=== PATIENT | male | born 1950 | race Caucasian/White ===

== ENCOUNTER → 2016-12-16 | Day surgery (SDC) | payer OTHER, MEDICARE ==
[~2016-12-16] VITALS: Ht 172.7 cm; Wt 97.5 kg
[2016-12-16 08:55] LABS: PT 11.5 SEC (9.4-12.5); PTT 37 SEC (25-37)
--- NOTE | 2016-12-16 10:59 | Operative Report ---
Operative/Inv Procedure Report Surgery Date: 12/16/16 Name of Procedure: Endoscopic sinus surgery with fusion guidance and balloon sinus plasty 1. Sinonasal polypectomy 2. Middle meatal antrotomy with polypoid tissue removal, bilateral 3. Total ethmoidectomy with polypoid tissue removal, bilateral 4. Nasofrontal duct exploration with dilation and polypoid tissue removal 5. Middle turbinate reduction, bilateral 6. Inferior turbinate outfracture , bilateral Pre-Operative Diagnosis: 1. Sinonasal polyposis 2. Chronic peace sinusitis, ethmoid, maxillary, frontal, bilateral 3. Turbinate hypertrophy inferior and middle, bilateral Post-Operative Diagnosis: Same Estimated Blood Loss: 200 mL Surgeon/Patient Placement Coordinator: MAN SALEH MD Anesthesia: general endotracheal tube Specimens: 1. Sinus, ethmoid and maxillary and frontal and middle turbinate, left 3. Sinus, ethmoid and maxillary and frontal middle turbinates, right Complications: None Condition: Stable on leaving the OR Operative Indication: Difficulty breathing through the nose, nasal congestion x several years Chronic sinusitis with recurrent polyps x years Patient treated with multiple antibiotics, antihistamines, decongestants, steroid and antihistamine nasal sprays with limited improvement, with improvement but then recurrence Frequent facial pressures and headaches s/p sinus surgery in the past Operative/Procedure Note Note: The patient was brought to the operating room. Placed on the operating room table in supine position. At first timeout was performed identifying the patient, ID numbers and procedure to be performed. Next general oral endotracheal anesthesia was induced. Endotracheal tube was secured with tape over the last corner of the lip. Operating room table was rotated 90 to the left and patient was positioned for septal surgery with head slightly hyperextended and rotated to the right. At first vasoconstriction was carried by application of Afrin spray on cottonoid pledgets. Next middle meatus on the left was injected with 1% lidocaine with 1: 100,000 epinephrine approximately 6cc was injected. This followed by placement of cotton pledgets saturated with cocaine solution and Afrin spray. Patient's face was then prepped and draped in routine manner and surgery was performed. As first fusion instrumentation was applied and calibrated . Next endoscopic sinus surgery was carried out, first on the left and then on the right. The surgery was carried with direct visualization with 0 and 30 scopes. At first on the left, middle turbinate was reduced along its inferior border with [place]uenwald forceps. Middle meatus was entered and total ethmoidectomy was carried. Polypoid tissue removed. The ethmoid air cells were removed with the straight and up turned to Ash-Dawsonley forceps. Ethmoid air cells were obstructed with profuse polyps . There was significant bony hyperostosis. Total ethmoidectomy was carried with fusion guidance. Once ethmoidectomy was completed, Nasofrontal duct was explored . Polypoid tissue removed, balloon sinus plasty was carried. Nasofrontal duct was at first located with effusion guidance followed by balloon sinus plasty. Wire guide was threaded into the nasofrontal duct and frontal sinus followed by advancement of the balloon which was then inflated to a pressure of 6. Balloon was deflated and wire deadvanced together with the balloon. Small amount of purulent drainage was obtained from the frontal sinus. Maxillary sinus ostium was explored. Uncinate process was partially removed with Setliff forceps. Profuse polypoid tissue within the ostium was also removed. Curved ball seeker was used to probe for the natural maxillary sinus ostium. The ostium was further identified with fusion tracker. The ostium was then dilated with curved suction. Polypoid tissue was removed. Sinus was suctioned and contained thickened inspissated secretions. Surgery was completed on the Left. Next similar surgery was carried on the right. Again the middle turbinate was reduced along its inferior border with Gruenwald forceps. Then total ethmoidectomy was carried. Both bone and mucosa were removed. The mucosa was hyperplastic and total hyperostotic. Ethmoidectomy was carried with fusion guidance. There was marked polypoid tissue present throughout the ethmoids. Once the ethmoidectomy was completed, Nasofrontal duct was explored . Polypoid tissue removed, balloon sinus plasty was carried. Nasofrontal duct was at first located with fusion guidance followed by balloon sinus plasty. Wire guide was threaded into the nasofrontal duct and frontal sinus followed by advancement of the balloon which was then inflated to a pressure of 6. Balloon was deflated and wire deadvanced together with the balloon. Small amount of purulent drainage was obtained from the frontal sinus. Once frontal sinus was explored , then maxillary sinus ostium was searched for. Partial uncinectomy was carried with Setliff forceps. Curved ball seeker was used to search for the maxillary ostium. This was followed by fusion guidance. Ostium was dilated with a curved suction. Polypoid mucosa was removed. Sinus was suctioned. It contained inspissated secretions. Surgery was completed. Next inferior turbinates were then in and outfracture. This was done with 0 scope visualization. This improved the inferior nasal airway. Surgery was completed. Nasal packing was applied next. Gelfilm rolled up into a roll was placed into the middle meatus 2 pieces on each side, secured with 2-0 silk which was then taped to the cheeks with Steri-Strips. Nasal fossa was packed with Telfa saturated with Bactroban ointment. Telfa was stitched anteriorly with 2-0 silk to prevent posterior displacement. This followed by placement Helotene slurry into the middle meatus bilaterally Surgery was completed. The patient was reawakened, extubated and taken to the recovery room in good condition. There were no complications. Estimated blood was was 200 mL. Findings: 1. Nasal fossa obstructed by polypoid tissue, bilaterally 2. Ethmoid sinuses- polyps tissue 3. Maxillary sinuses- polyps tissue and thickened secretions 4. Middle turbinates- hypertrophy 5. Inferior Turbinates- hypertrophy with obstruction of the inferior meatus Discharge Disposition: PACU
== END ==
LOC: STS 09-30 07:00
PROVIDERS: Otolaryngology
DX: J32.4 Chronic pansinusitis (principal); J33.8 Other polyp of sinus; J34.3 Hypertrophy of nasal turbinates; R09.81 Nasal congestion; F17.200 Nicotine dependence, unspecified, uncomplicated; J44.9 Chronic obstructive pulmonary disease, unspecified; I10 Essential (primary) hypertension; E11.9 Type 2 diabetes mellitus without complications; Z79.84 Long term (current) use of oral hypoglycemic drugs; E03.9 Hypothyroidism, unspecified; E78.2 Mixed hyperlipidemia
CPT/HCPCS: 1263; 36415; 88304; C9399; J0131; J0690; J1100; J2250

== ENCOUNTER 2017-10-14 07:07 | Inpatient (IN) | payer OTHER, MEDICARE ==
[~2017-10-14] VITALS: Ht 172.7 cm; Wt 98.5 kg
--- NOTE | 2017-10-14 07:34 | ED CARDIAC/CP/PALPITATIONS ---
History of Present Illness General Chief Complaint: Chest Pain Stated Complaint: "I THINK IM HAVING A HEART ATTACK" Source: patient, family, old records Exam Limitations: no limitations Vital Signs & Intake/Output Vital Signs & Intake/Output Vital Signs Date Time Temp Pulse Resp B/P B/P Pulse O2 O2 Flow FiO2 Mean Ox Delivery Rate 10/15 0717 68 18 108/56 93 Room Air Room Air 10/14 0810 83 18 98/53 93 Room Air Room Air 10/14 0744 97 Room Air Room Air 10/14 0730 78 18 117/60 93 Room Air Room Air 10/14 0727 97.6 70 22 177/68 95 Room Air Allergies Coded Allergies: NO KNOWN ALLERGIES (12/15/16) Triage Note: PT STATES "I THINK IM HAVING A HEART ATTACK". PT STATES LEFT SIDED PAIN DOWN ARM, NOW RIGHT ARM AND JAW AND BOTTOM TEETH AND PT STATES THAT HE CAN NOT TAKE A DEEP BREATH. ONSET 0430 THIS MORNING. Triage Nurses Notes Reviewed? yes HPI: Patient was awoken at 4:30 this morning with a pressure sensation substernally that radiated to his left arm. Patient attempted to go back to sleep but was unable to. Patient went to bed last night feeling fine. Slowly over the next few hours the pain also began to radiate to his right arm. Pain then began to radiate up towards his jaw and actually became concerned and decided to come to the emergency room for evaluation. At its worst the pain was 9 out of 10. Patient took a full strength aspirin and slowly the pain is decreased to a 6 out of 10. The pain is constant. It radiates as noted above. Patient states that he feels he cannot take a deep breath. Patient denies any orthopnea. There is no dyspnea on exertion. There is no nausea or vomiting. There is no diaphoresis. Past History Travel History Traveled to [place] past 21 day No Medical History Any Pertinent Medical History? see below for history Cardiovascular: hypertension, hyperlipidemia Endocrine: diabetes Surgical History Surgical History: non-contributory Psychosocial History Who do you live with Spouse Services at Home NONE What is your primary language Hebrew Tobacco Use: Current Daily Use Daily Tobacco Use Amount/Type: =< 4 Cigarettes daily ETOH Use: denies use Illicit Drug Use: denies illicit drug use Family History Hx Contributory? No Review of Systems Review of Systems Constitutional: Reports: no symptoms. EENTM: Reports: no symptoms. Respiratory: Reports: no symptoms. Cardiovascular: Reports: see HPI, chest pain. GI: Reports: no symptoms. Genitourinary: Reports: no symptoms. Musculoskeletal: Reports: no symptoms. Skin: Reports: no symptoms. Neurological/Psychological: Reports: no symptoms. Hematologic/Endocrine: Reports: no symptoms. Immunologic/Allergic: Reports: no symptoms. All Other Systems: Reviewed and Negative Physical Exam Physical Exam General Appearance: well developed/nourished, alert, awake, anxious, moderate distress Head: atraumatic, normal appearance Eyes: Bilateral: PERRL, EOMI. Ears, Nose, Throat: normal pharynx, normal ENT inspection, hearing grossly normal Neck: normal inspection, supple, full range of motion Respiratory: normal breath sounds, chest non-tender, no respiratory distress, lungs clear Cardiovascular: regular rate/rhythm, normal peripheral pulses Gastrointestinal: normal bowel sounds, soft, non-tender, no organomegaly Back: normal inspection, normal range of motion Extremities: normal inspection, normal capillary refill, normal range of motion, no edema Neurologic/Psych: no motor/sensory deficits, awake, alert, oriented x 3, normal mood/affect Skin: intact, normal color, warm/dry Lymphatic: no anterior cervical javon Core Measures ACS in differential dx? Yes No ASA d/t TOOK EKG MONITOR TECH CVA/TIA Diagnosis No Sepsis Present: No Sepsis Focused Exam Completed? No Progress Differential Diagnosis: AMI, atrial fibrillation, cholecystitis, musculoskeletal pain, myocarditis, pericarditis, pneumonia, pneumothorax, pulmonary embolism Plan of Care: Orders Procedure Date/time Status Telemetry/Telecommunications Manager 10/14 0733 Active TROPONIN LEVEL 10/14 0733 Complete D-DIMER 10/14 0733 Complete COMPREHENSIVE METABOLIC PANEL 10/14 0733 Complete CBC WITHOUT DIFFERENTIAL 10/14 0733 Complete EKG 10/14 0708 Active Laboratory Tests 10/14/17 0730: Anion Gap 15, Estimated GFR > 60, BUN/Creatinine Ratio 17.5, Glucose 145 H, Calcium 10.5 H, Total Bilirubin 0.9, AST 57, ALT 36, Alkaline Phosphatase 214 H, Troponin I < 0.01, Total Protein 8.6 H, Albumin 4.0, Globulin 4.6 H, Albumin/Globulin Ratio 0.9 L, D-Dimer High Sensitivty < 200, CBC w Diff NO MAN DIFF REQ, RBC 4.26 L, MCV 96.7 H, MCH 32.0 H, MCHC 33.0, RDW 14.9 H, MPV 9.0 , Gran % 66.1, Lymphocytes % 20.0 L, Monocytes % 7.1, Eosinophils % 6.1 H, Basophils % 0.7, Absolute Granulocytes 7.0 H, Absolute Lymphocytes 2.1, Absolute Monocytes 0.8 H, Absolute Eosinophils 0.6, Absolute Basophils 0.1 Diagnostic Imaging: Viewed by Me: Radiology Read. Discussed w/RAD: Radiology Read. CXR Impression: PATIENT: DELVIS GILL PRESENT AGE : 66 PATIENT ACCOUNT NO: [id number] : 49 LOCATION: [facility] ORDERING PHYSICIAN: Roe Woods MD SERVICE DATE: 10/14/17 EXAM TYPE: RAD - XRY-PORTABLE CHEST XRAY EXAMINATION: XR PORTABLE CHEST CLINICAL INFORMATION: Chest pain COMPARISON: 04/21/2009. TECHNIQUE: Portable AP 85 degrees upright view of the chest was obtained. FINDINGS: Cardiac and mediastinal silhouettes are within normal limits. Lung volumes are decreased but clear. No focal consolidation or atelectasis. Postoperative changes seen at the distal right clavicle. IMPRESSION: Unremarkable examination. DICTATED BY: Trevon Mccormack MD DATE/TIME DICTATED:10/14/17800 JAVA MOBILE DEVELOPER:ODALYS DATE/TIME TRANSCRIBED:10/14/17800 CONFIDENTIAL, DO NOT COPY WITHOUT APPROPRIATE AUTHORIZATION. <Electronically signed in Other Vendor System> SIGNED BY: Trevon Mccormack MD 10/14/17805 Initial ED EKG: NSR, no ST T wave changes Rhythm Strip: normal sinus rhythm Comments: PAIN DOWN TO 6 OUTOF10 AFTER THE ASA PAIN DOWN TO 3 OUT OF 10 AFTER NTG PAIN GONE AFTER SECOND NITRO CASE D/W DR. ROPER. HE WILL CONSULT Departure Departure Disposition: STILL A PATIENT Condition: Fair Clinical Impression Primary Impression: ACS (acute coronary syndrome) Referrals: Cindy HOLBROOK,Bill Zaragoza (PCP/Family) Departure Forms: Customer Survey General Discharge Information Admission Note Spoke With: Megan Lopez MD Documentation of Exam: Documentation of any treatments & extenuating circumstances including Concerns Regarding Discharge (functional status, medication knowledge or non-compliance, living conditions, etc.) that warrant an admission rather than observation: [ TELE ADMISSION, SERIAL ENZYNES, HEPARIN IF PAIN COMES BACK. CARDIOLOGY CONSULTAITON WITH PROBABLE CATHETERIZATION INNEAR FUTURE.] Critical Care Note Critical Care Note Critical Care Time: mins: (90 MIN)
[2017-10-14 07:50] LABS: ABSOLUTE BASOPHIL COUNT 0.1 /CUMM (0.0-0.2); ABSOLUTE EOSINOPHIL COUNT 0.6 /CUMM (0.0-0.7); ABSOLUTE LYMPH COUNT 2.1 /CUMM (1.2-3.4); ABSOLUTE MONOCYTE COUNT 0.8 /CUMM (0.10-0.60); BASOPHIL % 0.7 % (0.0-2.0); EOSINOPHIL % 6.1 % (0-5); GRANULOCYTE % 66.1 % (42.2-75.2); HEMATOCRIT 41.2 % (42-52); MEAN CORPUSCULAR VOLUME 96.7 FL (80.0-94.0); PLATELET COUNT 218 /CUMM (130-400); RBC DISTRIBUTION WIDTH 14.9 % (11.5-14.5); RED BLOOD CELL CT 4.26 /CUMM (4.70-6.10); WHITE BLOOD CELL COUNT 10.6 /CUMM (4.8-10.8)
--- NOTE | 2017-10-14 08:06 | RADIOLOGY REPORT ---
EXAMINATION: XR PORTABLE CHEST CLINICAL INFORMATION: Chest pain COMPARISON: 04/21/2009. TECHNIQUE: Portable AP 85 degrees upright view of the chest was obtained. FINDINGS: Cardiac and mediastinal silhouettes are within normal limits. Lung volumes are decreased but clear. No focal consolidation or atelectasis. Postoperative changes seen at the distal right clavicle. IMPRESSION: Unremarkable examination.
--- NOTE | 2017-10-14 09:01 | History & Physical ---
Triston HOLBROOK,Itzel 10/14/17 0901: General Information and HPI MD Statement: I have seen and personally examined DELVIS GILL and documented this H&P. The patient is a 66 year old M who presented with a patient stated chief complaint of [chest pain]. Source of Information: patient Exam Limitations: no limitations History of Present Illness: 66-year-old male with a past medical history significant for type 2 diabetes not on insulin, anxiety, high blood pressure, hyperlipidemia, hypothyroidism, cirrhosis with esophageal and gastric varices and enlarged liver and current smoker who presents with c/o chest pain that woke him up this morning around 4.30-5am. Pain was pressure-like, substernal and radiated to his left arm, right arm and then radiated to his mid jaw into his lower teeth. Pain was constant 6-7 /10, and was only mildly relieved by full strength aspirin which he took at home. He was brought to the ED by his and in the ED was given SL nitro x 2 with marked improvemnet in his chest pain, except for a mild residual pain when he tries to take in a deep breath. He denies any similar pain in the past, palpitations, fever, SOB, diaphoresis, nausea or vomiting, orthopnea, or PND. He report good blood glucose control at home (80-120) post meal, but he does not follow a strct diabetic or heart healthy diet and does not excercise. He had a recent endoscopy/colonoscopy 1 month ago with polyp removal and was recently started on nadolol by Dr Kennedy (GI). He recently stopped drinking ETOH but continues to smoke up to a pack per week and isn't ready to quit. He has a chronic red rash on his skin x 1 yr now. Work up has reveealed no diagnosis and no treatment has worked so far. He is now using UV light therapy with minimal improvement but no resolution. He had a history of bigeminy in the past for which he was seen by Dr. Lopez's cardiology group about 5-6 yrs ago and was started on a medication which he can' t remember and no longer takes. He says he had a stress test at that time that was normal. No known FH of heart disease. Allergies/Medications Allergies: Coded Allergies: NO KNOWN ALLERGIES (12/15/16) Home Med list Amlodipine Besylate 10 MG TABLET 1 TAB PO DAILY HIGH BLOOD PRESSURE (Reported ) Atorvastatin Calcium 10 MG TABLET 1 TAB PO DAILY HIGH CHOLESTROL (Reported) Duloxetine HCl 30 MG CAPSULE.DR 1 CAP PO DAILY ANXIETY (Reported) Furosemide 20 MG TABLET 1 TAB PO DAILY LEG SWELLING (Reported) Levothyroxine Sodium 75 MCG TABLET 1 TAB PO DAILY HYPOTHYROIDISM (Reported) Losartan Potassium 100 MG TABLET 1 TAB PO DAILY HIGH BLOOD PRESSURE (Reported ) Metformin HCl 1,000 MG TABLET 1 TAB PO BID DIABETES (Reported) Nadolol 20 MG TABLET 1 TAB PO DAILY LIVER HEALTH (Reported) Compliance With Home Meds: GOOD Past History Travel History Traveled to [place] past 21 day No Medical History Neurological: NONE EENT: METAL IN EYE Cardiovascular: hypertension, hyperlipidemia Respiratory: asthma Gastrointestinal: GERD Hepatic: ENLARGED LIVER Renal: NONE Musculoskeletal: NONE Psychiatric: anxiety Endocrine: diabetes, hypothyroidism, obesity Blood Disorders: NONE Cancer(s): NONE FULL TIME STAFF INTERPRETER/Reproductive: NONE Surgical History Surgical History: non-contributory Past Family/Social History Family History Relations & Conditions if any MOTHER FH: diabetes mellitus TIAs FATHER FH: prostate cancer Psychosocial History Where do you live? Home Who Do You Live With? spouse Services at Home: NONE Smoking Status: Current Everyday Smoker ETOH Use: denies use Illicit Drug Use: denies illicit drug use Functional Ability ADLs Independent: dressing, eating, toileting, bathing. Ambulation: independent IADLs Independent: shopping, housework, finances, food prep, telephone, transportation , medication admin. Review of Systems Review of Systems Constitutional: Denies: see HPI. Cardiovascular: Reports: chest pain. Respiratory: Denies: see HPI. GI: Denies: see HPI. Genitourinary: Denies: see HPI. Skin: Reports: see HPI. Date of Last Colonoscopy: 08/28/17 Exam & Diagnostic Data Last 24 Hrs of Vital Signs/I&O Vital Signs Date Time Temp Pulse Resp B/P B/P Pulse O2 O2 Flow FiO2 Mean Ox Delivery Rate 10/14 1018 97.6 72 18 146/70 10/14 0958 72 18 146/70 96 Room Air Room Air 10/14 0901 68 18 128/60 93 Room Air Room Air 10/14 0817 68 18 108/56 93 Room Air Room Air 10/14 0810 83 18 98/53 93 Room Air Room Air 10/14 0744 97 Room Air Room Air 10/14 0730 78 18 117/60 93 Room Air Room Air 10/14 0727 97.6 70 22 177/68 95 Room Air Intake & Output 10/14 1600 10/14 0800 10/14 0000 Intake Total Output Total Balance Patient 218 lb Weight Weight Reported by Patient Measurement Method Physical Exam General Appearance Alert, Oriented X3, Cooperative, No Acute Distress Skin erythematous rash over anterior chest wall, back, neck, and arms. not weepy or itchy Skin Temp/Moisture Exam: Warm/Dry Sepsis Skin Exam (color): Normal for Ethnicity HEENT PERRLA, EOMI, Mucous Membr. moist/pink Neck Supple, No JVD Cardiovascular Regular Rate, Normal S1, Normal S2 Lungs Clear to Auscultation, Normal Air Movement Abdomen Normal Bowel Sounds, Soft, No Tenderness Extremities Normal Pulses, trace pedal edema on rt lower extremity, left leg normal Last 24 Hrs of Labs/Gregory: Laboratory Tests 10/14/17 0730: Anion Gap 15, Estimated GFR > 60, BUN/Creatinine Ratio 17.5, Glucose 145 H, Calcium 10.5 H, Total Bilirubin 0.9, AST 57, ALT 36, Alkaline Phosphatase 214 H, Troponin I < 0.01, Total Protein 8.6 H, Albumin 4.0, Globulin 4.6 H, Albumin/Globulin Ratio 0.9 L, D-Dimer High Sensitivty < 200, CBC w Diff NO MAN DIFF REQ, RBC 4.26 L, MCV 96.7 H, MCH 32.0 H, MCHC 33.0, RDW 14.9 H, MPV 9.0 , Gran % 66.1, Lymphocytes % 20.0 L, Monocytes % 7.1, Eosinophils % 6.1 H, Basophils % 0.7, Absolute Granulocytes 7.0 H, Absolute Lymphocytes 2.1, Absolute Monocytes 0.8 H, Absolute Eosinophils 0.6, Absolute Basophils 0.1 Diagnostic Data EKG Results NSR, rate 65, QTC 454, no previous EKG for comparison CXR Results Unremarkable examination. Assessment/Plan Assessment: 66-year-old male with a past medical history significant for type 2 diabetes not on insulin, anxiety, high blood pressure, hyperlipidemia, hypothyroidism, cirrhosis with varices and current smoker who presents with c/o chest pain that woke him up this morning around 4.30-5am. Pain was pressure-like, substernal and radiated to his left arm, right arm and then radiated to his mid jaw into his lower teeth. Pain was constant 6-7/10, and was only mildly relieved by full strength aspirin which he took at home. Initial trop= <0.01, no ST changes on EKG Problem List 1. Chest Pain r/o suspected Acute Coronary Syndrome 2. T2 DM 3. Advanced Liver disease (cirrhosis) with esophageal and gastric varices 4. Current Smoker Plan -Admit to the telemetry floor -Trend troponins and EKG 3 -Obtain an ECHO -Check a fasting lipid panel -Asprin 325mg x 1 (pt already took this at home this am); then 81 mg daily thereafter. Watch for any GI bleeds due to hx of varices. -Nitro patch 0.4mg daily -Continue beta jesus manuel nadolol -Resume his other impt home meds -Cardiology consulted-Dr. Gutierrez will see. Will follow his recommendations -Hold IV drip Heparin per operations management trainee-Dr. Gutierrez, start IV heparin drip if CP resumes or trops rise -Increase his home dose of Atorvastatin to 80mg daily; pt says he is on 10mg EOD due to the medication causing him restless legs-will monitor closely -Smoking cessation counselling given -Check TSH, free T4, PT/INR, AM CBC, BEP -SC heprin for DVT ppx for now -Diabetic diet -Full code -Follow attending recommendations As Ranked By This Provider Problem List: 1. ACS (acute coronary syndrome) 2. Diabetes 3. Liver disease 4. Hypertension 5. Hyperlipidemia Core Measures/Misc (04/02) Acute Coronary Syndrome ACS Diagnosis: Yes Congestive Heart Failure Congestive Heart Failure Diagnosis No Cerebrovascular Accident CVA/TIA Diagnosis: No VTE (View Protocol) VTE Risk Factors Acute Medical Illness No Mechanical VTE Prophylaxis d/t N/A MechProphylax Ordered No VTE Pharm Prophylaxis d/t NA PharmProphylax ordered Sepsis (View protocol) Sepsis Present: No Resident Review Statement Resident Statement: examined this patient Other Findings: see HPI Megan Lopez MD 10/14/17 1406: Attending MD Review Statement Attending Statement Attending MD Statement: examined this patient, discuss w/resident/PA/UTILITY GELATIN MAKER, agreed w/resident/PA/UTILITY GELATIN MAKER, reviewed EMR data (avail), discussed with nursing, discussed with case mgmt, reviewed images Attending Assessment/Plan: 66-year-old male with past medical history of diabetes, hypertension, hyperlipidemia and active tobacco use. In addition he also appears to have a cirrhotic liver. His last imaging shows a nodular shrunken cirrhotic liver with splenomegaly and his last endoscopy in 09/03 shows portal gastropathy, esophageal and gastric varices. The etiology of the cirrhosis is something I'm not totally clear with. Patient denies heavy alcohol use but he does have obesity and the question is whether this is a secondary to nonalcoholic steatohepatitis or alcohol. He is here with an episode of chest pain. The pain was significant enough for him to get 2 sublingual nitros and a dose of morphine which ultimately relieved it. His initial EKG doesn't have any changes and his first set of enzymes are negative. However he does have CAD equivalent given the diabetes, hypertension and hyperlipidemia. We will bring him into telemetry, continue his statin. He is on a nonselective beta jesus manuel for the varices which we'll continue. He doesn't take aspirin at home usually and will start him on aspirin while watching his crit closely given the history of the varices. Obviously if he develops ongoing chest pain, dynamic EKG changes or positive troponin -will have to at that point consider IV heparinization and possibility of other antiplatelets like Plavix. We'll put him in for an echo, get cardiology to see him for risk stratification and follow closely.
[2017-10-14] MEDS ORDERED: FUROSEMIDE20 M1 PO (10:07)
[2017-10-14] MEDS ORDERED: NADOLOL20 M1 PO (10:07)
[2017-10-14] MEDS ORDERED: AMLODIPINE BESY10 M1 PO (10:08)
[2017-10-14] MEDS ORDERED: LEVOTHYROXINE75 MCG PO (10:08)
[2017-10-14] MEDS ORDERED: ATORVASTATIN CA10 M1 PO (10:08)
[2017-10-14] MEDS ORDERED: DULOXETINE HCL30 MG PO (10:08)
[2017-10-14] MEDS ORDERED: METFORMIN HCL1000 M1 PO (10:08)
[2017-10-14] MEDS ORDERED: LOSARTAN POTAS100 M1 PO (10:08)
[2017-10-14 11:13] VITALS: BP 138/70
--- NOTE | 2017-10-14 13:47 | Cons- Cardiology ---
General Information and HPI Consulting Request Date of Consult: 10/14/17 Requested By: Megan Lopez MD Reason for Consult: Chest pain Source of Information: patient, old records History of Present Illness: This is a pleasant 66-year-old male with a past medical history of hypertension, hyperlipidemia, diabetes mellitus, hypothyroidism, nicotine dependence, and cirrhosis with varices who presented to [facility] with a chief complaint of moderate intensity chest discomfort with some radiation to his arm and jaw; some improvement with nitroglycerin; denied significant dyspnea but felt it was hard to take a deep breath during the episode. Denied associated palpitations, nausea, diaphoresis, or lightheadedness. No orthopnea or paroxysmal nocturnal dyspnea. Denies any history of known coronary artery disease. He was recently started on outpatient nadolol for portal hypertension. He believes he had a negative stress test many years ago. Denies any recent change in exertional tolerance or any exertional symptoms. Allergies/Medications Allergies: Coded Allergies: NO KNOWN ALLERGIES (12/15/16) Home Med List: Amlodipine Besylate 10 MG TABLET 1 TAB PO DAILY HIGH BLOOD PRESSURE (Reported ) Atorvastatin Calcium 10 MG TABLET 1 TAB PO DAILY HIGH CHOLESTROL (Reported) Duloxetine HCl 30 MG CAPSULE.DR 1 CAP PO DAILY ANXIETY (Reported) Furosemide 20 MG TABLET 1 TAB PO DAILY LEG SWELLING (Reported) Levothyroxine Sodium 75 MCG TABLET 1 TAB PO DAILY HYPOTHYROIDISM (Reported) Losartan Potassium 100 MG TABLET 1 TAB PO DAILY HIGH BLOOD PRESSURE (Reported ) Metformin HCl 1,000 MG TABLET 1 TAB PO BID DIABETES (Reported) Nadolol 20 MG TABLET 1 TAB PO DAILY LIVER HEALTH (Reported) Current Medications: Current Medications Sig/Franklin Start time Last Medication Dose Route Stop Time Status Admin Acetaminophen 650 MG Q6P PRN 10/14 0915 AC PO Amlodipine Besylate 10 MG DAILY 10/15 1000 DC PO Amlodipine Besylate 10 MG DAILY 10/14 1030 AC PO Aspirin 81 MG DAILY 10/15 1000 AC PO Aspirin 325 MG DAILY 10/14 1000 DC PO 10/14 1001 Atorvastatin Calcium 80 MG 1700 10/14 1700 DC PO Atorvastatin Calcium 40 MG 1700 10/14 1700 CAN PO Atorvastatin Calcium 80 MG 1700 10/14 1700 AC PO Clopidogrel Bisulfate 75 MG DAILY 10/14 1030 DC PO Duloxetine HCl 30 MG DAILY 10/15 1000 DC PO Duloxetine HCl 30 MG DAILY 10/14 1030 AC PO Heparin Sodium 5,000 UNIT Q8 10/14 1400 AC (Porcine) SC Insulin Aspart 0 TIDAC 10/14 1200 AC SC Levothyroxine Sodium 0.075 MG DAILY AC 10/15 0700 DC PO Levothyroxine Sodium 0.075 MG DAILY AC 10/14 1030 AC PO Losartan Potassium 100 MG DAILY 10/15 1000 DC PO Losartan Potassium 100 MG DAILY 10/14 1030 AC PO Metoprolol Tartrate 6.25 MG BID 10/14 1006 DC 10/14 PO 1018 Multivitamins 0 .STK-MED ONE 10/14 1017 DC PO Multivitamins 1 TAB DAILY 10/14 1000 AC 10/14 PO 1018 Nadolol 20 MG DAILY 10/14 1154 AC PO Nitroglycerin 0.4 MG DAILY 10/15 1000 AC TOP Nitroglycerin 0.4 MG ONCE ONE 10/14 0815 DC 10/14 SL 10/14 0816 0803 Nitroglycerin 0 .STK-MED ONE 10/14 0759 DC SL Nitroglycerin 0.4 MG ONCE ONE 10/14 0745 DC 10/14 SL 10/14 0746 0750 Review of Systems Review of Systems: Review of systems as per HPI. The remainder of a 10 point review of systems was reviewed and was otherwise negative. Past History Travel History Traveled to [place] past 21 day No Medical History Neurological: NONE EENT: METAL IN EYE Cardiovascular: hypertension, hyperlipidemia Respiratory: asthma Gastrointestinal: GERD Hepatic: ENLARGED LIVER Renal: NONE Musculoskeletal: NONE Psychiatric: anxiety Endocrine: diabetes, hypothyroidism, obesity Blood Disorders: NONE Cancer(s): NONE RECORDS MANAGEMENT ASSOCIATE/Reproductive: NONE Surgical History Surgical History: non-contributory Family History Relations & Conditions If Any: MOTHER FH: diabetes mellitus TIAs FATHER FH: prostate cancer Psychosocial History Where Do You Live? Home Who Do You Live With? spouse Services at Home: NONE Smoking Status: Current Everyday Smoker ETOH Use: denies use Illicit Drug Use: denies illicit drug use Functional Ability ADLs Independent: dressing, eating, toileting, bathing. Ambulation: independent IADLs Independent: shopping, housework, finances, food prep, telephone, transportation , medication admin. Exam & Diagnostic Data Vital Signs and I&O Vital Signs Date Time Temp Pulse Resp B/P B/P Pulse O2 O2 Flow FiO2 Mean Ox Delivery Rate 10/14 1113 99.2 75 22 138/70 95 Room Air 10/14 1018 97.6 72 18 146/70 10/14 0958 72 18 146/70 96 Room Air Room Air 10/14 0901 68 18 128/60 93 Room Air Room Air 10/14 0817 68 18 108/56 93 Room Air Room Air 10/14 0810 83 18 98/53 93 Room Air Room Air 10/14 0744 97 Room Air Room Air 10/14 0730 78 18 117/60 93 Room Air Room Air 10/14 0727 97.6 70 22 177/68 95 Room Air Intake & Output 10/14 1600 10/14 0800 10/14 0000 10/13 1600 10/13 0800 10/13 0000 Intake Total Output Total Balance Patient 226 lb 218 lb Weight Weight Reported by Patient Measurement Method Physical Exam: General: no apparent distress. Alert. Eyes: No obvious scleral icterus. HEENT: No jugular venous distention or abnormal jugular venous pulsations. Cardiovascular: Normal intensity S1/S2. Regular Respiratory: Lungs clear to auscultation bilaterally. Abdomen: no guarding or rebound tenderness. Musculoskeletal: No clubbing or cyanosis noted Skin: Warm Neurologic: No gross focal deficits noted. Labs/Gregory Results: Laboratory Tests 10/14 729 Chemistry Sodium (137 - 145 mmol/L) 142 Potassium (3.5 - 5.1 mmol/L) 4.5 Chloride (98 - 107 mmol/L) 104 Carbon Dioxide (22 - 30 mmol/L) 23 Anion Gap (5 - 16) 15 BUN (9 - 20 mg/dL) 14 Creatinine (0.7 - 1.2 mg/dL) 0.8 Estimated GFR (>60 ml/min) > 60 BUN/Creatinine Ratio (7 - 25 %) 17.5 Glucose (65 - 99 mg/dL) 145 H Calcium (8.4 - 10.2 mg/dL) 10.5 H Total Bilirubin (0.2 - 1.3 mg/dL) 0.9 AST (17 - 59 U/L) 57 ALT (21 - 72 U/L) 36 Alkaline Phosphatase (< 127 U/L) 214 H Troponin I (<0.11 ng/ml) < 0.01 Total Protein (6.3 - 8.2 g/dL) 8.6 H Albumin (3.5 - 5.0 g/dL) 4.0 Globulin (1.9 - 4.2 gm/dL) 4.6 H Albumin/Globulin Ratio (1.1 - 2.2 %) 0.9 L TSH (0.270 - 4.200 uIU/mL) 4.390 H Thyroxine (T4) (4.5 - 10.9 ug/dL) 10.1 Coagulation D-Dimer High Sensitivty (0 - 243 ng/ml) < 200 Hematology CBC w Diff NO MAN DIFF REQ WBC (4.8 - 10.8 /CUMM) 10.6 RBC (4.70 - 6.10 /CUMM) 4.26 L Hgb (14.0 - 18.0 G/DL) 13.6 L Hct (42 - 52 %) 41.2 L MCV (80.0 - 94.0 FL) 96.7 H MCH (27.0 - 31.0 PG) 32.0 H MCHC (33.0 - 37.0 G/DL) 33.0 RDW (11.5 - 14.5 %) 14.9 H Plt Count (130 - 400 /CUMM) 218 MPV (7.4 - 10.4 FL) 9.0 Gran % (42.2 - 75.2 %) 66.1 Lymphocytes % (20.5 - 51.1 %) 20.0 L Monocytes % (1.7 - 9.3 %) 7.1 Eosinophils % (0 - 5 %) 6.1 H Basophils % (0.0 - 2.0 %) 0.7 Absolute Granulocytes (1.4 - 6.5 /CUMM) 7.0 H Absolute Lymphocytes (1.2 - 3.4 /CUMM) 2.1 Absolute Monocytes (0.10 - 0.60 /CUMM) 0.8 H Absolute Eosinophils (0.0 - 0.7 /CUMM) 0.6 Absolute Basophils (0.0 - 0.2 /CUMM) 0.1 Diagnostic Data EKG Results Tracing personally reviewed sinus rhythm at 65 bpm CXR Results No CHF Other Results Telemetry tracings are personally reviewed and shows sinus rhythm Abd CT: - Stable appearing cirrhotic liver with associated portal hypertension including perigastric and gastroesophageal varices and a gastrorenal shunt. There is small volume intra-abdominal ascites. No definite focal liver lesions are identified with artifact from gas-filled bowel slightly obscuring the right lobe of the liver. - Stable appearing enlarged peripancreatic, portacaval, and retroperitoneal lymph nodes that remain nonspecific. - Progressive stranding and edema within the retroperitoneum that is nonspecific. - Splenomegaly. - Several diverticula project posteriorly from the second portion of the duodenum which along with the third portion of the duodenum appears thick walled. An inflammatory, infectious, or neoplastic process involving the duodenum is not excluded. The gastric wall may also be thickened though is difficult to assess secondary to decompression. In light of a previously reported history of mastocytosis, correlation with endoscopy may be indicated. - Cholelithiasis without evidence of acute cholecystitis. - Calcified pleural plaques at the lung bases as the sequela of asbestos exposure. A 1.5 cm cyst partially effacing the right azygoesophageal recess below the right inferior pulmonary vein is stable. Assessment/Plan Assessment/Plan 1. Chest discomfort of unclear etiology 2. History of hypertension 3. History of hyperlipidemia 4. Diabetes mellitus 5. Cirrhosis with varices 6. Nicotine dependence Patient's chest discomfort is of unclear etiology but ischemia is in the differential given his significant cardiac risk factors; would follow serial troponins and obtain an echocardiogram. Would not initiate on IV heparin unless chest pain recurs or troponins are positive. Will start him on daily aspirin therapy and monitor for any evidence of bleeding given his reported history of cirrhosis with varices. Unclear what the etiology of his cirrhosis is. Continue on statin therapy. Will continue to discuss options regarding further assessment for coronary artery disease. Check coagulation panel. Critical importance of smoking cessation was discussed. Case was discussed at length with the patient and with the medical team today. Jean-Paul Gutierrez MD [facility] Consult Acknowledgment - Thank you for your consult request.
--- NOTE | 2017-10-14 14:10 | Admission Certification ---
Admission Certification Certification Statement - As attending physician, I certify that at the time of - admission, based on clinical presentation, severity of - symptoms, need for further diagnostic testing and - therapeutic interventions, and risk of adverse outcomes - without in-hospital treatment, in my clinical assessment, - this patient requires an acute hospital stay for a minimum - of two nights or longer. I have also considered psychsocial - factors such as support system, advanced age, financial - issues, cognitive issues, and failed out-patient treatments, - past re-admission history, safety of patient, and lack of - compliance as applicable. Specific rationale supporting this admission is: Chest pain suggestive of ACS in patient with diabetes, hypertension, hyperlipidemia and cirrhosis.
[2017-10-14 15:53] VITALS: BP 134/76
[2017-10-14 17:53] LABS: PT 15.7 SEC (9.4-12.5)
--- NOTE | 2017-10-14 19:17 | ECHOCARDIOGRAM REPORT ---
DELVIS GILL Age: 66 : 1950 Gender: M Exam Date: 10/14/2017 14:47 Exam Location: 1 [address] Ht (in): 68 Wt (lb): 226 BSA: 2.26 BP: 140 / 98 Ordering Physician: Itzel Goldstein MD Referring Physician: Troy Gutierrez M.D. Technologist: Aurea Zhong Room Number: [id number] Indications: CHEST PAIN Rhythm: Sinus Technical Quality: Good FINDINGS Left Ventricle Normal global left ventricular size, wall thickness, systolic function with no obvious regional wall motion abnormalities. Left ventricular ejection fraction is estimated at > 55 %. Normal left ventricular diastolic filling pattern for age. Right Ventricle Normal right ventricular size and function. Right Atrium Normal right atrial size. Left Atrium Normal left atrial size. Mitral Valve No mitral stenosis. Mild mitral annular calcification. Trace mitral regurgitation. Aortic Valve No aortic stenosis. Trileaflet aortic valve. Tricuspid Valve Structurally normal tricuspid valve. Trace tricuspid regurgitation. No evidence of pulmonary hypertension. Pulmonic Valve Pulmonic valve not well visualized, grossly normal. Pericardium No pericardial effusion. Great Vessels Normal size aortic root. CONCLUSIONS Normal global left ventricular size, wall thickness, systolic function with no obvious regional wall motion abnormalities. Left ventricular ejection fraction is estimated at > 55 %. Normal left ventricular diastolic filling pattern for age. Normal right ventricular size and function. No evidence of pulmonary hypertension. No pericardial effusion. Troy Gutierrez M.D. (Electronically Signed) Final Date: 14 October 2017 19:16 MEASUREMENTS (Male / Female) Normal Values 2D ECHO LV Diastolic Diameter PLAX 4.9 cm 4.2 - 5.9 / 3.9 - 5.3 cm LV Systolic Diameter PLAX 3.1 cm 2.1 - 4.0 cm LV Fractional Shortening PLAX 36.7 % 25 - 46 % LV Ejection Fraction 2D Teich 66.4 % IVS Diastolic Thickness 1.1 cm LVPW Diastolic Thickness 1.1 cm LV Relative Wall Thickness 0.4 RV Internal Dim ED PLAX 2.8 cm 1.9 - 3.8 cm LVOT Diameter 2.3 cm LA Systolic Diameter LX 3.6 cm 3.0 - 4.0 / 2.7 - 3.8 cm Ascending Aorta Diameter 3.1 cm DOPPLER AV Peak Velocity 155.0 cm/s AV Peak Gradient 9.6 mmHg AV Mean Velocity 115.0 cm/s AV Mean Gradient 6.0 mmHg AV Velocity Time Integral 32.8 cm LVOT Peak Velocity 129.0 cm/s LVOT Peak Gradient 6.7 mmHg LVOT Mean Velocity 89.0 cm/s LVOT Mean Gradient 4.0 mmHg LVOT Velocity Time Integral 24.1 cm LVOT Stroke Volume 100.1 cm AV Area Cont Eq vti 3.1 cm AV Area Cont Eq pk 3.5 cm MV Peak Velocity 113.0 cm/s MV Peak Gradient 5.1 mmHg MV Mean Velocity 68.6 cm/s MV Mean Gradient 2.0 mmHg Mitral E Point Velocity 99.7 cm/s Mitral A Point Velocity 78.0 cm/s Mitral E to A Ratio 1.3 MV PHT Velocity 114.0 cm/s MV Deceleration Baraga 398.0 cm/s MV Pressure Half Time 85.9 ms MV Area PHT 2.6 cm MV Deceleration Time 215.0 ms TR Peak Velocity 242.0 cm/s TR Peak Gradient 23.4 mmHg Right Atrial Pressure 10.0 mmHg Pulmonary Artery Systolic Pressu 33.4 mmHg Right Ventricular Systolic Press 33.4 mmHg PV Peak Velocity 112.0 cm/s PV Peak Gradient 5.0 mmHg PV Mean Velocity 77.3 cm/s PV Mean Gradient 3.0 mmHg PV Velocity Time Integral 25.0 cm LV E' Lateral Velocity 7.1 cm/s Mitral E to LV E' Lateral Ratio 14.1 LV E' Septal Velocity 8.5 cm/s Mitral E to LV E' Septal Ratio 11.7
[2017-10-14 23:03] VITALS: BP 126/68
[2017-10-15 07:00] VITALS: BP 102/62
[2017-10-15 08:13] LABS: ABSOLUTE BASOPHIL COUNT 0.1 /CUMM (0.0-0.2); ABSOLUTE EOSINOPHIL COUNT 0.4 /CUMM (0.0-0.7); ABSOLUTE GRANULOCYTE CT 8.5 /CUMM (1.4-6.5); ABSOLUTE LYMPH COUNT 2.7 /CUMM (1.2-3.4); ABSOLUTE MONOCYTE COUNT 1.4 /CUMM (0.10-0.60); BASOPHIL % 0.6 % (0.0-2.0); EOSINOPHIL % 2.8 % (0-5); GRANULOCYTE % 65.4 % (42.2-75.2); MEAN CORPUSCULAR HGB 32.4 PG (27.0-31.0); MEAN CORPUSCULAR HGB CONC 33.5 G/DL (33.0-37.0); MEAN CORPUSCULAR VOLUME 96.8 FL (80.0-94.0); MEAN PLATELET VOLUME 9.7 FL (7.4-10.4); PLATELET COUNT 172 /CUMM (130-400); RBC DISTRIBUTION WIDTH 15.2 % (11.5-14.5); RED BLOOD CELL CT 3.54 /CUMM (4.70-6.10)
--- NOTE | 2017-10-15 08:50 | PN- Housestaff ---
Alvin HOLBROOK,[facility] 10/15/17 0850: Subjective Follow-up For: Chest pain Hepatic cirrhosis Subjective: Patient was seen and examined this morning, denied chest pain, palpitation or shortness of breath. Patient had nasal bleed overnight, he thinks it because of heparin subcutaneous and since then he is refusing it. Patient does walk around. Denied any vomiting or coughing up blood, no melena or hematochezia. Vital signs are stable. Review of Systems Constitutional: Reports: see HPI. Objective Last 24 Hrs of Vital Signs/I&O Vital Signs Date Time Temp Pulse Resp B/P B/P Pulse O2 O2 Flow FiO2 Mean Ox Delivery Rate 10/15 0942 68 102/62 10/15 0940 68 102/62 10/15 0700 98.9 68 20 102/62 91 10/14 2303 99.2 68 17 126/68 90 10/14 1731 100.3 10/14 1553 100.0 72 24 134/76 92 10/14 1349 81 140/98 10/14 1349 81 140/98 10/14 1348 81 140/90 10/14 1113 99.2 75 22 138/70 95 Room Air 10/14 1018 97.6 72 18 146/70 Intake & Output 10/15 1600 10/15 0800 10/15 0000 Intake Total 110 Output Total Balance 110 Intake, IV 10 Intake, Oral 100 Patient 99.847 kg Weight Physical Exam General Appearance: Alert, Oriented X3, Cooperative, No Acute Distress Skin: No Rashes, No Breakdown, No Significant Lesion Skin Temp/Moisture Exam: Warm/Dry HEENT: Atraumatic, PERRLA, EOMI, Mucous Membr. moist/pink Neck: Supple Cardiovascular: Regular Rate, Normal S1, Normal S2, No Murmurs Lungs: Clear to Auscultation, Normal Air Movement Abdomen: Normal Bowel Sounds, Soft, No Tenderness, hepatomegaly , Distended Neurological: Normal Gait, Normal Speech, Strength at 5/5 X4 Ext, Normal Tone, Sensation Intact, Cranial Nerves 3-12 NL, Reflexes 2+ Extremities: No Clubbing, No Cyanosis, No Edema, Normal Pulses Assessment/Plan Assessment: 66-year-old male with a past medical history significant for type 2 diabetes not on insulin, anxiety, high blood pressure, hyperlipidemia, hypothyroidism, cirrhosis with varices and current smoker was [facility] pain, to rule out ACS. Problem List 1. Chest Pain r/o suspected Acute Coronary Syndrome 2. T2 DM 3. Advanced Liver disease (cirrhosis) with esophageal and gastric varices 4. Current Smoker 5. Leukocytosis with no bands or signs of infection. Patient is afebrile, T-max 100.3 at 530 yesterday Plan -Troponins and EKG 3 are negative -Echocardiogram was obtained that showed normal global left ventricular size with left ventricular ejection fraction more than 55% -Fasting lipid panel test is within normal, triglyceride 97, cholesterol 141, HDL 79 and HDL is 43 -Continue baby aspirin daily -Nitro patch 0.4mg daily, patient is not using it -Continue beta jesus manuel nadolol -Cardiology consultation was obtained, thanks for recommendation -Continue atorvastatin to 80mg daily -Smoking cessation counselling given -TSH is 4.39, free T4 1001, patient is on Synthroid 75 MCG daily, well repeat TSH and adjust Synthroid dose if needed -SC heprin for DVT ppx for now -Diabetic diet -Full code -Follow attending recommendations Problem List: 1. Liver disease 2. Diabetes Pain Ratin Pain Location: n/a Pain Goal: Pain 4 or less Pain Plan: see medication Tomorrow's Labs & Rationales: CBC Megan Lopez MD 10/15/17 1227: Attending MD Review Statement Attending Statement Attending MD Statement: examined this patient, discuss w/resident/PA/GEOPHYSICAL ENGINEER, agreed w/resident/PA/GEOPHYSICAL ENGINEER, reviewed EMR data (avail), discussed with nursing, reviewed images Attending Assessment/Plan: 66-year-old male with past medical history of diabetes, hypertension, hyperlipidemia and active tobacco use. In addition he also appears to have a cirrhotic liver. His last imaging shows a nodular shrunken cirrhotic liver with splenomegaly and his last endoscopy in 09/03 shows portal gastropathy, esophageal and gastric varices. The etiology of the cirrhosis is something I'm not totally clear with. Patient denies heavy alcohol use but he does have obesity and the question is whether this is a secondary to nonalcoholic steatohepatitis or alcohol. He is here with this episode of chest pain. He has ruled out with serial enzymes and EKG. He does have risk factors for coronary artery disease and will need an outpatient stress test. He did spike a low-grade temp overnight of 100.3, his white count went up to 13,000 and he feels achy all over. He denies any other specific complaints and specifically denies diarrhea, cough, urinary complaints or any abdominal pain. Given the underlying cirrhotic picture, the diabetes and the low-grade temp and high white count, I think we need to watch him overnight. I've ordered a flu swab just to make sure we're not dealing with influenza. We also need to watch his hemoglobin and any evidence of clinical bleeding on the baby aspirin given his cirrhosis and varices. GI is going to see him today and will follow closely.
[2017-10-15 09:16] LABS: HEMATOCRIT 34.3 % (42-52)
--- NOTE | 2017-10-15 12:40 | PN- Cardiology ---
Subjective Subjective: Resting comfortably with no recurrent chest discomfort. He did have a low-grade fever. Objective Vital Signs and I&Os Vital Signs Date Time Temp Pulse Resp B/P B/P Pulse O2 O2 Flow FiO2 Mean Ox Delivery Rate 10/15 0942 68 102/62 10/15 0940 68 102/62 10/15 0700 98.9 68 20 102/62 91 10/14 2303 99.2 68 17 126/68 90 10/14 1731 100.3 10/14 1553 100.0 72 24 134/76 92 10/14 1349 81 140/98 10/14 1349 81 140/98 10/14 1348 81 140/90 Intake & Output 10/15 1600 10/15 0810/15 0000 10/14 1600 10/14 0800 10/14 0000 Intake Total 110 310 Output Total Balance 110 310 Intake, IV 10 10 Intake, Oral 100 300 Patient 220 lb 226 lb 218 lb Weight Weight Reported by Patient Measurement Method Physical Exam: General: no apparent distress. Alert. Eyes: No obvious scleral icterus. HEENT: No jugular venous distention or abnormal jugular venous pulsations. Cardiovascular: Normal intensity S1/S2. Regular Respiratory: Lungs clear to auscultation bilaterally. Abdomen: no guarding or rebound tenderness. Musculoskeletal: No clubbing or cyanosis noted Skin: Warm Neurologic: No gross focal deficits noted. Current Medications: Current Medications Sig/[place] Start time Last Medication Dose Route Stop Time Status Admin Acetaminophen 650 MG Q6P PRN 10/14 0915 AC 10/14 PO 1731 Amlodipine Besylate 10 MG DAILY 10/14 1030 AC 10/15 PO 0940 Aspirin 81 MG DAILY 10/15 1000 AC 10/15 PO 0940 Atorvastatin Calcium 80 MG 1700 10/14 1700 AC 10/14 PO 1731 Duloxetine HCl 30 MG DAILY 10/14 1030 AC 10/15 PO 0940 Heparin Sodium 5,000 UNIT Q8 10/14 1400 AC (Porcine) SC Insulin Aspart 0 TIDAC 10/14 1200 AC SC Levothyroxine Sodium 0.075 MG DAILY AC 10/14 1030 AC 10/15 PO 0604 Losartan Potassium 100 MG DAILY 10/14 1030 AC 10/15 PO 0940 Multivitamins 1 TAB DAILY 10/14 1000 AC 10/15 PO 0940 Nadolol 20 MG DAILY 10/14 1154 AC 10/15 PO 0942 Nitroglycerin 0.4 MG DAILY 10/15 1000 AC 10/15 TOP 0940 Oxycodone/ 1 TAB Q6P PRN 10/14 2300 AC Acetaminophen PO Sodium Chloride 2 SPRAY Q4P PRN 10/15 1030 AC LUIS Results Last 48 Hrs of Labs/Mics: Laboratory Tests 10/15/17 0605: Anion Gap 11, Estimated GFR > 60, BUN/Creatinine Ratio 23.8, Triglycerides 97, Cholesterol 141, LDL Cholesterol, Calc 79, HDL Cholesterol 43, Cholesterol/HDL Ratio 3, CBC w Diff NO MAN DIFF REQ, RBC 3.54 L, MCV 96.8 H, MCH 32.4 H, MCHC 33.5, RDW 15.2 H, MPV 9.7, Gran % 65.4, Lymphocytes % 20.5, Monocytes % 10.7 H , Eosinophils % 2.8, Basophils % 0.6, Absolute Granulocytes 8.5 H, Absolute Lymphocytes 2.7, Absolute Monocytes 1.4 H, Absolute Eosinophils 0.4, Absolute Basophils 0.1 10/14/17 2235: Troponin I < 0.01 10/14/17 2030: Troponin I Cancelled 10/14/17 1620: Troponin I < 0.01, PT 15.7 H, INR 1.44 H 10/14/17 0730: Anion Gap 15, Estimated GFR > 60, BUN/Creatinine Ratio 17.5, Glucose 145 H, Calcium 10.5 H, Total Bilirubin 0.9, AST 57, ALT 36, Alkaline Phosphatase 214 H, Troponin I < 0.01, Total Protein 8.6 H, Albumin 4.0, Globulin 4.6 H, Albumin/Globulin Ratio 0.9 L, TSH 4.390 H, Thyroxine (T4) 10.1, D-Dimer High Sensitivty < 200, CBC w Diff NO MAN DIFF REQ, RBC 4.26 L, MCV 96.7 H, MCH 32.0 H, MCHC 33.0, RDW 14.9 H, MPV 9.0, Gran % 66.1, Lymphocytes % 20.0 L, Monocytes % 7.1, Eosinophils % 6.1 H, Basophils % 0.7, Absolute Granulocytes 7.0 H, Absolute Lymphocytes 2.1, Absolute Monocytes 0.8 H, Absolute Eosinophils 0.6, Absolute Basophils 0.1 Recent Imaging Studies: Telemetry tracings were personally reviewed and shows sinus rhythm Echocardiogram Normal global left ventricular size, wall thickness, systolic function with no obvious regional wall motion abnormalities. Left ventricular ejection fraction is estimated at > 55 %. Normal left ventricular diastolic filling pattern for age. Normal right ventricular size and function. No evidence of pulmonary hypertension. No pericardial effusion. Troy Gutierrez M.D. (Electronically Signed) Final Date: 14 October 2017 19:16 Assessment/Plan Assessment/Plan 1. Chest discomfort of unclear etiology 2. History of hypertension 3. History of hyperlipidemia 4. Diabetes mellitus 5. Cirrhosis with varices 6. Nicotine dependence Resting comfortably with no recurrent chest discomfort. He did have a low-grade fever. We again discussed possible options for further cardiac workup and given the cirrhosis with varices we are hesitant to proceed directly to cardiac catheterization as he has had no recurrent chest discomfort and his echocardiogram as above showed no obvious wall motion abnormalities. At this time we will plan to continue him on aspirin and statin therapy and further risk stratify him with a nuclear stress test as an outpatient; however if he does have any recurrent episodes he will plan to return to the hospital via 911. If no recurrent episodes he is instructed to follow-up in my office within 1 week of discharge. Jean-Paul Gutierrez MD [facility] Continue telemetry? No
--- NOTE | 2017-10-15 12:46 | Cons- Gastroenterology ---
General Information and HPI Consulting Request Date of Consult: 10/15/17 Requested By: John HOLBROOK,Megan Zaragoza Reason for Consult: cirrhosis Source of Information: patient, old records Exam Limitations: no limitations History of Present Illness: Patient is a 66-year-old gentleman who is 5 foot 8 and 210 pounds with a BMI of 33. He is admitted with chest pain to rule out IL. He is known to have cirrhosis based on imaging and an endoscopy showing varices and portal gastropathy. He was approximately 170 pounds through most this 20s and 30s and started to gain weight in his 40s. Erwin he has had a moderately high alcohol intake through most of his adult life. He is somewhat evasive about the exact amount he has been drinking. However states that through his 20s the used to particularly a lot of have lots of. Through most of his adult life he has been taking alcohol regularly but again is evasive about exactly how much he takes on the weekdays and weekends. Patient does not have any clear symptoms which are concerning for hepatic decompensation. Patient is entirely alert orientated. Has no insomnia. Has not noticed any swelling of his ankles or abdomen. No petechiae or bruising or other evidence of bleeding. Endoscopy in 09/03 shows portal gastropathy, esophageal and gastric varices. CT Feb 2017: The liver is enlarged and exhibits a slightly nodular contour in keeping with underlying cirrhosis. No definite focal liver lesions are identified with artifact from gas-filled bowel slightly obscuring the right lobe of the liver. There is also evidence of portal venous hypertension with recanalization of the umbilical vein as well as perigastric and gastroesophageal varices. Allergies/Medications Allergies: Coded Allergies: NO KNOWN ALLERGIES (12/15/16) Home Med List: Amlodipine Besylate 10 MG TABLET 1 TAB PO DAILY HIGH BLOOD PRESSURE (Reported ) Atorvastatin Calcium 10 MG TABLET 1 TAB PO DAILY HIGH CHOLESTROL (Reported) Duloxetine HCl 30 MG CAPSULE.DR 1 CAP PO DAILY ANXIETY (Reported) Furosemide 20 MG TABLET 1 TAB PO DAILY LEG SWELLING (Reported) Levothyroxine Sodium 75 MCG TABLET 1 TAB PO DAILY HYPOTHYROIDISM (Reported) Losartan Potassium 100 MG TABLET 1 TAB PO DAILY HIGH BLOOD PRESSURE (Reported ) Metformin HCl 1,000 MG TABLET 1 TAB PO BID DIABETES (Reported) Nadolol 20 MG TABLET 1 TAB PO DAILY LIVER HEALTH (Reported) Current Medications: Current Medications Sig/[place] Start time Last Medication Dose Route Stop Time Status Admin Acetaminophen 650 MG Q6P PRN 10/14 0915 AC 10/14 PO 1731 Amlodipine Besylate 10 MG DAILY 10/14 1030 AC 10/15 PO 0940 Aspirin 81 MG DAILY 10/15 1000 AC 10/15 PO 0940 Atorvastatin Calcium 80 MG 1700 10/14 1700 AC 10/14 PO 1731 Duloxetine HCl 30 MG DAILY 10/14 1030 AC 10/15 PO 0940 Heparin Sodium 5,000 UNIT Q8 10/14 1400 AC (Porcine) SC Insulin Aspart 0 TIDAC 10/14 1200 AC SC Levothyroxine Sodium 0.075 MG DAILY AC 10/14 1030 AC 10/15 PO 0604 Losartan Potassium 100 MG DAILY 10/14 1030 AC 10/15 PO 0940 Multivitamins 1 TAB DAILY 10/14 1000 AC 10/15 PO 0940 Nadolol 20 MG DAILY 10/14 1154 AC 10/15 PO 0942 Nitroglycerin 0.4 MG DAILY 10/15 1000 AC 10/15 TOP 0940 Oxycodone/ 1 TAB Q6P PRN 10/14 2300 AC Acetaminophen PO Sodium Chloride 2 SPRAY Q4P PRN 10/15 1030 AC LUIS Past History Travel History Traveled to [place] past 21 day No Medical History Neurological: NONE EENT: METAL IN EYE Cardiovascular: hypertension, hyperlipidemia Respiratory: asthma Gastrointestinal: GERD Hepatic: ENLARGED LIVER Renal: NONE Musculoskeletal: NONE Psychiatric: anxiety Endocrine: diabetes, hypothyroidism, obesity Blood Disorders: NONE Cancer(s): NONE MACHINE ASSISTANT/Reproductive: NONE Surgical History Surgical History: non-contributory Family History Relations & Conditions If Any: MOTHER FH: diabetes mellitus TIAs FATHER FH: prostate cancer Psychosocial History Where Do You Live? Home Who Do You Live With? spouse Services at Home: NONE Smoking Status: Current Everyday Smoker ETOH Use: denies use Illicit Drug Use: denies illicit drug use Functional Ability ADLs Independent: dressing, eating, toileting, bathing. Ambulation: independent IADLs Independent: shopping, housework, finances, food prep, telephone, transportation , medication admin. Review of Systems Review of Systems: Review of systems as per HPI. The remainder of a 10 point review of systems was reviewed and was otherwise negative. No headache insomnia peripheral edema. Exam & Diagnostic Data Vital Signs and I&O Vital Signs General: no apparent distress. Alert. Obese. Palmar erythema Eyes: No obvious scleral icterus. HEENT: No jugular venous distention or abnormal jugular venous pulsations. Cardiovascular: Normal intensity S1/S2. Regular Respiratory: Lungs clear to auscultation bilaterally. Abdomen: no guarding or rebound tenderness. Liver edge nonpalpable. No clinical splenomegaly Musculoskeletal: No clubbing or cyanosis noted Skin: Warm Neurologic: No gross focal deficits noted. Date Time Temp Pulse Resp B/P B/P Pulse O2 O2 Flow FiO2 Mean Ox Delivery Rate 10/15 0842 68 102/62 10/15 0940 68 102/62 10/15 0700 98.9 68 20 102/62 91 10/14 2303 99.2 68 17 126/68 90 10/14 1731 100.3 10/14 1553 100.0 72 24 134/76 92 10/14 1349 81 140/98 10/14 1349 81 140/98 10/14 1348 81 140/90 Intake & Output 10/15 1600 10/15 0400 10/14 1600 10/14 0400 10/13 1600 10/13 0400 Intake Total 110 310 Output Total Balance 110 310 Intake, IV 10 10 Intake, Oral 100 300 Patient 220 lb 226 lb Weight Weight Reported by Patient Measurement Method Assessment/Plan Assessment/Recommendations: Patient is a 66-year-old gentleman who is admitted with chest pain to rule out [place]. These known to have cirrhosis based on imaging and endoscopic findings of esophageal gastric varices or portal gastropathy. He has compensated cirrhosis. Admission he has not demonstrated any suggestion of decompensation. The likely etiology of his cirrhosis is a combination of alcohol and rash. Ferritin is low. I have not seen in the charts but he has likely had hepatitis B and C serology, PENNY, and serum plasmin. If these have not been done and that should be ordered. Hepatic encephalopathy is not an issue. Patient is alert orientated and does not have any insomnia. Renal function is normal. No NSAIDs. No evidence of bleeding. Patient does not significantly hypovolemic. No evidence of bleeding. Patient can be anticoagulated if necessary. Risk of bleeding in the presence of esophageal gastric varices is not as high as despite the expected. Patient's more likely to have an ongoing bleed due to portal gastropathy. Please limit IV crystalloids as patient is likely to retain fluid. No plans for endoscopic procedures on this admission. For a low-salt diet. Please do not limit protein intake. Consult Acknowledgment - Thank you for your consult request.
[2017-10-15] MEDS ORDERED: ASPIRIN81 M4 PO (14:16)
[2017-10-15 14:20] VITALS: BP 110/62
[2017-10-15 22:00] VITALS: BP 130/76
[2017-10-16 06:40] VITALS: BP 110/70
[2017-10-16 07:49] LABS: ABSOLUTE BASOPHIL COUNT 0.1 /CUMM (0.0-0.2); ABSOLUTE EOSINOPHIL COUNT 0.4 /CUMM (0.0-0.7); ABSOLUTE GRANULOCYTE CT 5.6 /CUMM (1.4-6.5); ABSOLUTE LYMPH COUNT 2.5 /CUMM (1.2-3.4); ABSOLUTE MONOCYTE COUNT 0.9 /CUMM (0.10-0.60); BASOPHIL % 0.5 % (0.0-2.0); EOSINOPHIL % 4.7 % (0-5); GRANULOCYTE % 59.2 % (42.2-75.2); MEAN CORPUSCULAR HGB 32.2 PG (27.0-31.0); MEAN CORPUSCULAR HGB CONC 33.4 G/DL (33.0-37.0); MEAN CORPUSCULAR VOLUME 96.4 FL (80.0-94.0); MEAN PLATELET VOLUME 9.7 FL (7.4-10.4); PLATELET COUNT 159 /CUMM (130-400); RBC DISTRIBUTION WIDTH 15.1 % (11.5-14.5); RED BLOOD CELL CT 3.43 /CUMM (4.70-6.10); WHITE BLOOD CELL COUNT 9.5 /CUMM (4.8-10.8)
--- NOTE | 2017-10-16 08:06 | PN- Housestaff ---
Aurelio HOLBROOK,[facility] 10/16/17 0805: Subjective Follow-up For: CP Subjective: No acute events overnight. No longer having CP. Review of Systems Constitutional: Reports: see HPI. Objective Last 24 Hrs of Vital Signs/I&O Vital Signs Date Time Temp Pulse Resp B/P B/P Pulse O2 O2 Flow FiO2 Mean Ox Delivery Rate 10/16 0922 65 120/70 / 0921 65 120/70 10/16 0921 65 120/70 10/16 0920 65 120/70 10/16 0800 Room Air 10/16 0640 97.7 62 20 110/70 92 Room Air 10/15 2200 98.8 72 22 130/76 91 Room Air Intake & Output 10/16 1600 10/16 0800 10/16 0000 Intake Total 200 450 Output Total 350 Balance 200 100 Intake, Oral 200 450 Output, Urine 350 Patient 217 lb Weight Physical Exam General Appearance: Alert, Oriented X3, Cooperative, No Acute Distress Cardiovascular: Regular Rate, Normal S1, Normal S2 Lungs: biblasilar crackles Abdomen: Normal Bowel Sounds, Soft, No Tenderness Vascular: 2+ radial pulses Current Medications: Current Medications Sig/Franklin Start time Last Medication Dose Route Stop Time Status Admin Acetaminophen 650 MG Q6P PRN 10/14 0915 DCD 10/14 PO 1731 Amlodipine Besylate 10 MG DAILY 10/14 1030 DCD 10/16 PO 0921 Aspirin 81 MG DAILY 10/15 1000 DCD 10/16 PO 0921 Atorvastatin Calcium 80 MG 1700 10/14 1700 DCD 04 PO 1648 Duloxetine HCl 30 MG DAILY 10/14 1030 DCD 10/16 PO 0921 Heparin Sodium 5,000 UNIT Q8 10/14 1400 DCD 10/15 (Porcine) SC 2201 Insulin Aspart 0 TIDAC 10/14 1200 DCD SC Levothyroxine Sodium 0.075 MG DAILY AC 10/14 1030 DCD 10/16 PO 0702 Losartan Potassium 100 MG DAILY 10/14 1030 DCD 10/16 PO 0921 Multivitamins 1 TAB DAILY 10/14 1000 DCD 04 PO 0921 Nadolol 20 MG DAILY 10/14 1154 DCD 10/16 PO 0922 Nitroglycerin 0.4 MG DAILY 10/15 1000 DCD 10/16 TOP 0922 Oxycodone/ 1 TAB Q6P PRN 10/14 2300 DCD Acetaminophen PO Patient Medication 1 ED ONE ONE 10/16 1115 DC Teaching ED 10/16 1116 Sodium Chloride 2 SPRAY Q4P PRN 10/15 1030 DCD LUIS Last 24 Hrs of Lab/Gregory Results Last 24 Hrs of Labs/Mics: Laboratory Tests 10/16/17 0637: CBC w Diff NO MAN DIFF REQ, RBC 3.43 L, MCV 96.4 H, MCH 32.2 H, MCHC 33.4, RDW 15.1 H, MPV 9.7, Gran % 59.2, Lymphocytes % 26.6, Monocytes % 9.0, Eosinophils % 4.7, Basophils % 0.5, Absolute Granulocytes 5.6, Absolute Lymphocytes 2.5, Absolute Monocytes 0.9 H, Absolute Eosinophils 0.4, Absolute Basophils 0.1 10/15/17 1655: Urine Color YEL, Urine Clarity CLEAR, Urine pH 6.0, Ur Specific [place] 1.020, Urine Protein NEG, Urine Ketones NEG, Urine Nitrite NEG, Urine Bilirubin NEG, Urine Urobilinogen 1.0, Ur Leukocyte Esterase NEG, Ur Microscopic EXAM NOT REQUIRED, Urine Hemoglobin NEG, Urine Glucose 100 H Microbiology 10/15 1654 URINE ROUT: Urine Culture - RES Assessment/Plan Assessment: 66-year-old male with a past medical history significant for type 2 diabetes not on insulin, anxiety, high blood pressure, hyperlipidemia, hypothyroidism, cirrhosis with varices and current smoker was admitted to [facility] for chest pain, to rule out ACS. Problem List 1. Chest Pain r/o suspected Acute Coronary Syndrome 2. T2 DM 3. Advanced Liver disease (cirrhosis) with esophageal and gastric varices 4. Current Smoker 5. Leukocytosis with no bands or signs of infection. Patient is afebrile, T-max 100.3 at 530 yesterday Plan -Patient being discharge with aspirin, high dose atorvastatin, and outpatient stress test -Troponins and EKG 3 are negative for ACS -Echocardiogram was obtained that showed normal global left ventricular size with left ventricular ejection fraction more than 55% -Fasting lipid panel test is within normal, triglyceride 97, cholesterol 141, HDL 79 and HDL is 43 -Nitro patch 0.4mg daily, patient is not using it -Continue beta jesus manuel nadolol -Smoking cessation counselling given -TSH is 4.39, free T4 1001, patient is on Synthroid 75 MCG daily, well repeat TSH and adjust Synthroid dose if needed -SC heprin for DVT ppx for -Diabetic diet -Full code Problem List: 1. Chest discomfort Pain Ratin Pain Location: none Pain Goal: Pain 4 or less Pain Plan: pathway Tomorrow's Labs & Rationales: none DoyleAki cannonjaime 10/16/17 1448: Attending MD Review Statement Attending Statement Attending MD Statement: examined this patient, discuss w/resident/PA/BUTTON SEWER, agreed w/resident/PA/BUTTON SEWER, reviewed EMR data (avail), discussed with nursing, discussed with case mgmt Attending Assessment/Plan: Pt being dced home in stable condition. CP resolved. Pt will be scheduled to f/u with cardio and will be scheduled for outpt stress test. d/w pt the care plan. and d/w him the hospital course and his discharge plan and answered all his questions.
--- NOTE | 2017-10-16 08:57 | Patient Discharge Instructions ---
Discharge Instructions General Discharge Information Special Instructions: Please follow up with your pcp in 1 week. Please follow up with your plater supervisor Dr. Lopez for a cardiac stress test. If not, please talk to your pcp to follow up with a plater supervisor of your choice. Please monitor for any signs of bleeding. Please call your PCP immediately if you have any bleeding as you have been started on aspirin. Please take your medications as perscribed. Acute Coronary Syndrome Inclusion Criteria At DC or during hospital stay patient has or had the following: ACS DIAGNOSIS No Discharge Core Measures Meds if any: Prescribed or Continued at Discharge Meds if any: NOT Prescribed or Continued at Discharge Congestive Heart Failure Inclusion Criteria At DC or during hospital stay patient has or had the following: CHF DIAGNOSIS No Discharge Core Measures Meds if any: Prescribed or Continued at Discharge Meds if any: NOT Prescribed or Continued at Discharge Cerebrovascular accident Inclusion Criteria At DC or during hospital stay patient has or had the following: CVA/TIA Diagnosis No Discharge Core Measures Meds if any: Prescribed or Continued at Discharge Meds if any: NOT Prescribed or Continued at Discharge Venous thromboembolism Inclusion Criteria VTE Diagnosis No VTE Type NONE VTE Confirmed by (Test) NONE Discharge Core Measures - Per Current guidelines, there needs to be overlap - treatment for the first 5 days of Warfarin therapy. - If discharged on Warfarin prior to 5 days of - overlap therapy, the patient will need to be - assessed for post discharge needs including - *Post discharge parental anticoagulation - *Warfarin and/or parental anticoagulation education - *Follow up date to check INR post discharge At least 5 days overlap therapy as Inpatient No Meds if any: Prescribed or Continued at Discharge Note: Overlap Therapy is Warfarin and Anticoagulant Meds if any: NOT Prescribed or Continued at Discharge
[2017-10-16 09:20] VITALS: BP 120/70
[2017-10-16 09:22] VITALS: BP 120/70
[2017-10-16] MEDS ORDERED: ATORVASTATIN CA80 M1 PO ×2 (09:54)
[2017-10-16] MEDS ORDERED: ASPIRIN81 M4 PO (09:54)
--- NOTE | 2017-10-16 11:12 | PN- Cardiology ---
Subjective Subjective: Feels well and offers no complaints. Objective Vital Signs and I&Os Vital Signs Date Time Temp Pulse Resp B/P B/P Pulse O2 O2 Flow FiO2 Mean Ox Delivery Rate 10/16 921 65 120/70 10/16 0921 65 120/70 10/16 0921 65 120/70 10/16 0920 65 120/70 10/16 0800 Room Air 10/16 0640 97.7 62 20 110/70 92 Room Air 10/15 2200 98.8 72 22 130/76 91 Room Air 10/15 1420 98.9 68 18 110/62 93 Room Air Intake & Output 10/16 1600 10/16 0800 10/16 0000 10/15 1600 10/15 0800 10/15 0000 Intake Total 200 450 500 110 Output Total 350 Balance 200 100 500 110 Intake, IV 10 Intake, Oral 200 450 500 100 Output, Urine 350 Patient 217 lb 220 lb Weight Physical Exam: General: no apparent distress. Alert. Eyes: No obvious scleral icterus. HEENT: No jugular venous distention or abnormal jugular venous pulsations. Cardiovascular: Normal intensity S1/S2. Regular Respiratory: Lungs clear to auscultation bilaterally. Abdomen: no guarding or rebound tenderness. Musculoskeletal: No clubbing or cyanosis noted Skin: Warm Neurologic: No gross focal deficits noted. Current Medications: Current Medications Sig/Franklin Start time Last Medication Dose Route Stop Time Status Admin Acetaminophen 650 MG Q6P PRN 10/14 0915 AC 10/14 PO 1731 Amlodipine Besylate 10 MG DAILY 10/14 1030 AC 10/16 PO 0921 Aspirin 81 MG DAILY 10/15 1000 AC 10/16 PO 0921 Atorvastatin Calcium 80 MG 1700 10/14 1700 AC 10/15 PO 1648 Duloxetine HCl 30 MG DAILY 10/14 1030 AC 10/16 PO 0921 Heparin Sodium 5,000 UNIT Q8 10/14 1400 AC 10/15 (Porcine) SC 2201 Insulin Aspart 0 TIDAC 10/14 1200 AC SC Levothyroxine Sodium 0.075 MG DAILY AC 10/14 1030 AC 10/16 PO 0702 Losartan Potassium 100 MG DAILY 10/14 1030 AC 10/16 PO 0921 Multivitamins 1 TAB DAILY 10/14 1000 AC 10/16 PO 0921 Nadolol 20 MG DAILY 10/14 1154 AC 10/16 PO 0922 Nitroglycerin 0.4 MG DAILY 10/15 1000 AC 10/16 TOP 0922 Oxycodone/ 1 TAB Q6P PRN 10/14 2300 AC Acetaminophen PO Patient Medication 1 ED ONE ONE 10/16 1115 AC Teaching ED 10/16 1116 Sodium Chloride 2 SPRAY Q4P PRN 10/15 1030 AC LUIS Results Last 48 Hrs of Labs/Mics: Laboratory Tests 10/16/17 0637: CBC w Diff NO MAN DIFF REQ, RBC 3.43 L, MCV 96.4 H, MCH 32.2 H, MCHC 33.4, RDW 15.1 H, MPV 9.7, Gran % 59.2, Lymphocytes % 26.6, Monocytes % 9.0, Eosinophils % 4.7, Basophils % 0.5, Absolute Granulocytes 5.6, Absolute Lymphocytes 2.5, Absolute Monocytes 0.9 H, Absolute Eosinophils 0.4, Absolute Basophils 0.1 10/15/17 1655: Urine Color YEL, Urine Clarity CLEAR, Urine pH 6.0, Ur Specific [place] 1.020, Urine Protein NEG, Urine Ketones NEG, Urine Nitrite NEG, Urine Bilirubin NEG, Urine Urobilinogen 1.0, Ur Leukocyte Esterase NEG, Ur Microscopic EXAM NOT REQUIRED, Urine Hemoglobin NEG, Urine Glucose 100 H 10/15/17 0605: Anion Gap 11, Estimated GFR > 60, BUN/Creatinine Ratio 23.8, Triglycerides 97, Cholesterol 141, LDL Cholesterol, Calc 79, HDL Cholesterol 43, Cholesterol/HDL Ratio 3, CBC w Diff NO MAN DIFF REQ, RBC 3.54 L, MCV 96.8 H, MCH 32.4 H, MCHC 33.5, RDW 15.2 H, MPV 9.7, Gran % 65.4, Lymphocytes % 20.5, Monocytes % 10.7 H , Eosinophils % 2.8, Basophils % 0.6, Absolute Granulocytes 8.5 H, Absolute Lymphocytes 2.7, Absolute Monocytes 1.4 H, Absolute Eosinophils 0.4, Absolute Basophils 0.1 10/14/17 2235: Troponin I < 0.01 10/14/17 2030: Troponin I Cancelled 10/14/17 1620: Troponin I < 0.01, PT 15.7 H, INR 1.44 H Microbiology 10/15 1345 NASOPHARYN: Influenza Virus A & B Rapid Smear - COMP Recent Imaging Studies: Telemetry tracings are personally reviewed and shows sinus rhythm Assessment/Plan Assessment/Plan 1. Chest discomfort of unclear etiology 2. History of hypertension 3. History of hyperlipidemia 4. Diabetes mellitus 5. Cirrhosis with varices 6. Nicotine dependence Resting comfortably with no recurrent chest discomfort. No recurrent low grade fever and white count is within normal limits. We again discussed possible options for further assessment and since he has no recurrent chest discomfort with normal echocardiogram and telemetry he prefers to follow-up as outpatient to discuss possible outpatient stress testing with his primary parking enforcement officer Dr. Guido in the near future. Continue with medical therapy including aspirin and statin. If he does have any recurrent episodes he will plan to return to the hospital via 911. If no recurrent episodes he is instructed to follow-up in our office within 1 week of discharge. Jean-Paul Gutierrez MD [facility] Continue telemetry? No
--- NOTE | 2017-10-16 16:23 | Discharge Summary ---
Visit Information Visit Dates Admission Date: 10/14/17 Discharge Date: 10/16/17 Hospital Course Course Attending Physician: Wen Roberson MD Primary Care Physician: Bill White MD Hospital Course: A: 66-year-old male with a past medical history significant for type 2 diabetes not on insulin, anxiety, high blood pressure, hyperlipidemia, hypothyroidism, cirrhosis with varices and current smoker was admitted to [facility] for chest pain. Problem List: #Chest Pain r/o suspected Acute Coronary Syndrome EKG and trops were negative for ACS. Fasting lipid panel was WNL. Echocardiogram revealed EF >55% with no obvious regional wall motion abnormalities. Patient was seen by cardiology who recommneded outpatient stress test with his primary journeyman sheet metal worker Dr. Guido. He was discharged with aspirin and high dose atorvastatin. #mild fever and Tmax Had elevated leukocytosis during 2nd day of admission. Patient was afebrile, tmax 100.3. WBC downtrended down from 13.0 to 9.5. Rapid flu was negative. Urine cultures negative x1 day. #T2 DM Patient is not on insulin. Treated with novolog sliding scale during admission. Discharged with home metformin. #Advanced Liver disease (cirrhosis) with esophageal and gastric varices Unknown cause of cirrhosis. Patient has spider angiomas on his chest. States he has never had biopsy of the liver. Seen by GI who cleared the patient for aspirin. Advised to follow up with GI outpatient. Advised to monitor signs of bleeding as the patient discharged with aspirin. #Current Smoker Advised patient to stop smoking. #chronic medical problems - HTN, mental health, hypothrodism, TSH slightly elevated 4.39 T4 normal 10.1 Continued nadolol, losartan, synthroid, duloxetine, amlodipine Complications: EXAM TYPE: CARD - ECHOCARDIOGRAM DELVIS GILL Age: 66 : 1950 Gender: M Exam Date: 10/14/2017 14:47 Exam Location: 1 [address] Ht (in): 68 Wt (lb): 226 BSA: 2.26 BP: 140 / 98 Ordering Physician: Itzel Goldstein MD Referring Physician: Troy Gutierrez M.D. Technologist: Aurea Zhong Room Number: [id number] Indications: CHEST PAIN Rhythm: Sinus Technical Quality: Good FINDINGS Left Ventricle Normal global left ventricular size, wall thickness, systolic function with no obvious regional wall motion abnormalities. Left ventricular ejection fraction is estimated at > 55 %. Normal left ventricular diastolic filling pattern for age. Right Ventricle Normal right ventricular size and function. Right Atrium Normal right atrial size. Left Atrium Normal left atrial size. Mitral Valve No mitral stenosis. Mild mitral annular calcification. Trace mitral regurgitation. Aortic Valve No aortic stenosis. Trileaflet aortic valve. Tricuspid Valve Structurally normal tricuspid valve. Trace tricuspid regurgitation. No evidence of pulmonary hypertension. Pulmonic Valve Pulmonic valve not well visualized, grossly normal. Pericardium No pericardial effusion. Great Vessels Normal size aortic root. CONCLUSIONS Normal global left ventricular size, wall thickness, systolic function with no obvious regional wall motion abnormalities. Left ventricular ejection fraction is estimated at > 55 %. Normal left ventricular diastolic filling pattern for age. Normal right ventricular size and function. No evidence of pulmonary hypertension. No pericardial effusion. Allergies: Coded Allergies: NO KNOWN ALLERGIES (12/15/16) Disposition Summary Disposition Principal Diagnosis: Chest pain Additional Diagnosis: Nicotine dependence Discharge Disposition: home or self care Discharge Instructions General Discharge Information Code Status: Full Code Patient's Diet: Heart healthy + diabetic Patient's Activity: As tolerated Follow-Up Instructions/Appts: Please follow up with your pcp in 1 week. Please follow up with your new journeyman sheet metal worker Dr. Lopez for a cardiac stress test. If not, please talk to your pcp to follow up with a journeyman sheet metal worker of your choice. Please monitor for any signs of bleeding. Please call your PCP immediately if you have any bleeding as you have been started on aspirin. Please take your medications as perscribed. Medications at Discharge Discharge Medications: Stop taking the following medications: Atorvastatin Calcium (Atorvastatin Calcium) 10 MG TABLET ORAL DAILY Qty = 45 Continue taking these medications: Furosemide (Furosemide) 20 MG TABLET 1 Tablet ORAL DAILY Qty = 30 Comments: NOT GIVEN IN HOSPITAL Nadolol (Nadolol) 20 MG TABLET 1 Tablet ORAL DAILY Qty = 30 Comments: Last Taken: 10/16/17 Time: 9AM Levothyroxine Sodium (Levothyroxine Sodium) 75 MCG TABLET 1 Tablet ORAL DAILY Qty = 90 Comments: Last Taken: 10/16/17 Time: 7AM Amlodipine Besylate (Amlodipine Besylate) 10 MG TABLET 1 Tablet ORAL DAILY Qty = 90 Comments: Last Taken: 10/16/17 Time: 9AM Losartan Potassium (Losartan Potassium) 100 MG TABLET 1 Tablet ORAL DAILY Qty = 90 Comments: Last Taken: 10/16/17 Time: 9AM Duloxetine HCl (Duloxetine HCl) 30 MG CAPSULE.DR 1 Capsule ORAL DAILY Qty = 90 Comments: Last Taken: 10/16/17 Time: 9AM Metformin HCl (Metformin HCl) 1,000 MG TABLET 1 Tablet ORAL TWICE DAILY Qty = 180 Comments: NOT GIVEN IN HOSPITAL Start taking the following new medications: Aspirin (Aspirin*) 81 MG TAB.CHEW 81 Milligram ORAL DAILY Qty = 30 No Refills Instructions: . Comments: Last Taken: 10/16/17 Time: 9AM Atorvastatin Calcium (Atorvastatin Calcium) 80 MG TABLET 1 Tablet ORAL 5 PM Qty = 30 No Refills Instructions: . Comments: Last Taken: 10/16/17 Time: 9AM Copies To: Cindy HOLBROOK,Bill Zaragoza
== END 2017-10-16 12:05 | DRG 313 ==
LOC: ERH 07:07 → ERHI 08:47 → 1NO 08:47 → ENRESERV 09:56 → ENTRNSPT 10:36 → EDTRNSPT 10:39 → EDTRNSPTSTS 10:39 → CMPTRNSPT 10:53 → 1NO 10:56 → ENPENDDIS 10-16 10:06 → 1NO 10-16 12:05
PROVIDERS: Emergency Medicine; Student in an Organized Health Care Education/Training Program
DX: R07.9 Chest pain, unspecified (principal); K76.6 Portal hypertension; I85.00 Esophageal varices without bleeding; D73.2 Chronic congestive splenomegaly; E11.9 Type 2 diabetes mellitus without complications; D72.829 Elevated white blood cell count, unspecified; E03.9 Hypothyroidism, unspecified; E66.9 Obesity, unspecified; K74.60 Unspecified cirrhosis of liver; I10 Essential (primary) hypertension; F17.210 Nicotine dependence, cigarettes, uncomplicated; Q27.33 Arteriovenous malformation of digestive system vessel; Z68.34 Body mass index [BMI] 34.0-34.9, adult; F41.9 Anxiety disorder, unspecified; Z79.84 Long term (current) use of oral hypoglycemic drugs; K21.9 Gastro-esophageal reflux disease without esophagitis; K31.89 Other diseases of stomach and duodenum
CPT/HCPCS: 1NP; 36592; 71045; 81003; 82436; 87086; 87804; 87804-59; 93005; 93010; 93306; 99291; J1644; J3490